=== PATIENT | male | born 1935 | race Caucasian/White ===

== ENCOUNTER 2016-05-24 13:35 | Emergency (ER) | payer MEDICARE, OTHER ==
[~2016-05-24] VITALS: Ht 160 cm; Wt 78.0 kg
[~2016-05-24 13:35] MED LIST: AMLO-218; ASPI-676; ENAL20TA73; EZET1TAB2; GLIM2TAB; HYDR25TA6; LORA-401; LORAZAPAM; NORVASC; OMEP20CA9; PIOG1TAB9; TAMS-14; VALS160T20; ZOLP10TA; [UNRECOGNIZED DRUG - OTHER]
[2016-05-24 13:46] VITALS: Ht 160 cm; Wt 78.0 kg
[2016-05-24 16:00] LABS: ADD SCAN DIFF NO
[2016-05-24 16:03] LABS: BASOPHIL # 0.1 10^3/ul (0.0-0.1); BASOPHILS % 0.9 % (0.0-2.0); EOSINOPHILS # 0.2 10^3/ul (0.0-0.5); EOSINOPHILS % 2.2 % (0.0-7.0); HEMATOCRIT 40.8 % (42.0-52.0); LYMPHOCYTES # 1.5 10^3/ul (0.8-2.9); MEAN CORPUSCULAR HEMOGLOBIN 26.1 pg (29.0-33.0); MEAN CORPUSCULAR HGB CONC 31.9 g/dl (32.0-37.0); MEAN CORPUSCULAR VOLUME 81.9 fl (82.0-101.0); MEAN PLATELET VOLUME 9.5 fl (7.4-10.4); MONOCYTE # 0.6 10^3/ul (0.3-0.9); MONOCYTES % 7.5 % (0.0-11.0); NEUTROPHIL # 5.7 10^3/ul (1.6-7.5); NEUTROPHILS % 70.4 % (39.0-77.0); PLATELET COUNT 228 10^3/UL (140-415); RED BLOOD COUNT 4.98 10^6/ul (4.70-6.10); RED CELL DISTRIBUTION WIDTH 15.2 % (11.5-14.5); WHITE BLOOD COUNT 8.1 10^3/ul (4.8-10.8)
[2016-05-24 16:16] LABS: INR 1.71; PROTIME 20.2 Sec (12.2-14.2); PT RATIO 1.6
[2016-05-24 16:17] LABS: PARTIAL THROMBOPLASTIN TIME 38.4 Sec (25.0-35.0)
--- NOTE | 2016-05-24 16:17 | RADRPT ---
PROCEDURE: XR Chest. CLINICAL INDICATION: Chest pain TECHNIQUE: Single frontal chest x-ray. COMPARISON: None available FINDINGS: Bibasilar atelectatic changes are present. There is mild central congestion. No focal no periphe ral opacification is seen. No pneumothorax or pleural effusion is seen. The the heart size is enla rged. Aortic atherosclerotic calcifications are present. The osseous structures are grossly unremar kable. IMPRESSION: 1. Cardiomegaly with mild central congestion and bibasilar atelectasis. 2. Aortic atherosclerosis. RPTAT: EE .Miguel A Chavira MD, MD Date Time Electronically viewed and signed by .Miguel A Chavira MD, MD on 05/24/2016 16:16 .A/
[2016-05-24 16:52] LABS: POTASSIUM 4.2 mmol/L (3.5-5.1)
[2016-05-24 16:55] LABS: CALCIUM 8.4 mg/dl (8.4-10.2); CREATININE 3.34 mg/dl (0.61-1.24)
[2016-05-24 16:56] LABS: MAGNESIUM 2.1 mg/dl (1.7-2.5)
[2016-05-24 17:01] VITALS: BP 169/91; PULSE 60; RESP 13; TEMP 97.9
[2016-05-24 17:07] LABS: TROPONIN-I 0.017 ng/ml (0.00-0.12)
--- NOTE | 2016-05-24 17:19 | ERD ---
ER Documentation Chief Complaint Date/Time DATE: 05/24/16 TIME: 17:16 Chief Complaint tanvi, denies cp or sob HPI This 80-year-old male presents to the emergency room for evaluation of shakiness. According to the patient patient's family the shakiness has started approximately 48 hours ago. He denies any numbness or tingling associated with this. Denies any shortness of breath or chest pain, and states that his left arm is mildly shaky. The patient denies any aggravating factors or relieving factors for his pain and came to the emergency room today for evaluation. ROS All systems reviewed and are negative except as per history of present illness. Medications Home Meds Reported Medications Lorazepam* (Ativan*) 1 Mg Tablet 12/05/09 Hydrochlorothiazide (Hydrochlorothiazide) 25 Mg Tablet 12/05/09 Zolpidem Tartrate (Ambien Gonzalo) 10 Mg Tablet 12/05/09 Glimepiride* (Glimepiride*) 2 Mg Tablet 12/05/09 Aspirin (Mario Child) 81 Mg Chew 12/05/09 Enalapril Maleate* (Vasotec*) 20 Mg Tablet 12/05/09 Amlodipine Besylate* (Norvasc*) 10 Mg Tablet 12/05/09 Omeprazole* (Prilosec*) 20 Mg Capsule.dr 12/05/09 Ezetimibe/Simvastatin (Vytorin 10/40 Mg Tablet) 1 Tab Tablet 12/05/09 Pioglitazone Hcl-Metformin Hcl (Actoplus Met) 1 Tab Tablet 12/05/09 Tamsulosin Hcl* (Flomax*) 0.4 Mg Cap.sr.24h 12/05/09 Valsartan* (Diovan*) 160 Mg Tablet 12/05/09 [Glimipiride] No Conflict Check 12/05/09 [Lorazapam] No Conflict Check 12/05/09 [Norvasc] No Conflict Check 12/05/09 Allergies Allergies: Coded Allergies: Penicillins (Verified Adverse Reaction, Severe, RASH, 12/09/09) PMhx/Soc History of Surgery: Yes (APPENDECTOMY) Anesthesia Reaction: No Hx Neurological Disorder: No Hx Respiratory Disorders: No Hx Cardiac Disorders: No Hx Psychiatric Problems: No Hx Miscellaneous Medical Probl: No Hx Alcohol Use: Yes Hx Substance Use: No Hx Tobacco Use: Yes Physical Exam Vitals Vital Signs Date Time Temp Pulse Resp B/P Pulse Ox O2 Delivery O2 Flow Rate FiO2 05/24/16 17:01 97.9 60 13 169/91 94 Room Air 05/24/16 13:46 98.1 51 20 170/83 99 Physical Exam INITIAL VITAL SIGNS: Reviewed by me GENERAL: The patient is well developed and appropriate for usual state of health in no apparent distress HEENT: Pupils equal, round, and reactive to light. EOMI. There is no scleral icterus. NECK: C-spine is soft and supple, there is no meningismus. There is no cervical lymphadenopathy. LUNGS: Clear to auscultation bilaterally. There are no rales, wheezes or rhonchi. HEART: Regular rate and rhythm, no murmurs, clicks, rubs or gallops. ABDOMEN: Soft, non-tender, non-distended. There are bowel sounds in all four quadrants. No rebound or guarding. EXTREMITIES: There is no peripheral cyanosis or edema. No focal swelling or erythema. NEUROLOGICAL: Intermittent muscle fasciculations of the left upper extremity, the patient moves all four extremities with 5/5 strength. Cranial nerves II - XII are intact. Normal gait. Alert and oriented SKIN: There is no apparent rash or petechiae. HEME/LYMPHATIC: There is no evidence of excessive bruising or lymphedema. PSYCHIATRIC: The patient does not appear anxious or depressed. Result Diagram: 05/24/16 1550 05/24/16 1550 Results 24 hrs Laboratory Tests Test 05/24/16 15:50 White Blood Count 8.110^3/ul Red Blood Count 4.9810^6/ul Hemoglobin 13.0g/dl Hematocrit 40.8% Mean Corpuscular Volume 81.9fl Mean Corpuscular Hemoglobin 26.1pg Mean Corpuscular Hemoglobin Concent 31.9g/dl Red Cell Distribution Width 15.2% Platelet Count 34676^3/UL Mean Platelet Volume 9.5fl Neutrophils % 70.4% Lymphocytes % 18.0% Monocytes % 7.5% Eosinophils % 2.2% Basophils % 0.9% Nucleated Red Blood Cells % 0.0/100WBC Neutrophils # 5.710^3/ul Lymphocytes # 1.510^3/ul Monocytes # 0.610^3/ul Eosinophils # 0.210^3/ul Basophils # 0.110^3/ul Nucleated Red Blood Cells # 0.010^3/ul Prothrombin Time 20.2Sec Prothrombin Time Ratio 1.6 INR International Normalized Ratio 1.71 Activated Partial Thromboplast Time 38.4Sec Sodium Level 142mmol/L Potassium Level 4.2mmol/L Chloride Level 109mmol/L Carbon Dioxide Level 21mmol/L Anion Gap 16 Blood Urea Nitrogen 50mg/dl Creatinine 3.34mg/dl Glucose Level 173mg/dl Calcium Level 8.4mg/dl Magnesium Level 2.1mg/dl Troponin I 0.017ng/ml Procedures/MDM EKG: Rate/Rhythm: Atrial fibrillation with slow ventricular response QRS, ST, T-waves: [No changes consistent w/ acute ischemia] Impression: [No evidence of ischemia or arrhythmia] Chest X-ray 1V Interpreted by me: Soft Tissue: No acute abnormalities Bones: No acute abnormalities Mediastinum/Cardiac Silhouette/Lungs: [No acute abnormalities] This 80-year-old male presents to the emergency room for evaluation of shakiness. When I evaluated this patient he did have periodic muscle fasciculations of the left upper extremity. EKG does show atrial fibrillation and I spoke with family and they state the patient does have a history of an irregular heart rate. Lab work was obtained to rule out hypercalcemia or hypocalcemia. This patient's lab work is within normal limits except for a creatinine which is greater than 3. His baseline is 2.4. The patient is able to urinate without difficulty. He is not hypoxic, normal respiratory distress. Troponin is negative. I advised patient he is to follow-up with his primary care physician and obtain a neurology referral. The patient and patient's family verbalized understanding and are okay with her plan of care. This patient is hemodynamically stable at this time, and advised the family to return immediately to the emergency room if this patient were to have worsening symptoms or chest pain or shortness of breath. The patient and the patient's family verbalized understanding will be discharged home at this time. Departure Diagnosis: Primary Impression: Muscle fasciculation Additional Impressions: Microcytic anemia Renal insufficiency Condition: Stable KANDIS BARRETT DO May 24, 2016 17:19
== END 2016-05-24 17:45 | disposition home or self-care (01) ==
LOC: E/R 13:35
DX: R25.3 Fasciculation (principal); R40.2252 Coma scale, best verbal response, oriented, at arrival to emergency department; D50.9 Iron deficiency anemia, unspecified; N28.9 Disorder of kidney and ureter, unspecified; R40.2142 Coma scale, eyes open, spontaneous, at arrival to emergency department; R40.2362 Coma scale, best motor response, obeys commands, at arrival to emergency department; R07.9 Chest pain, unspecified; Z87.891 Personal history of nicotine dependence; Z79.82 Long term (current) use of aspirin; Z79.84 Long term (current) use of oral hypoglycemic drugs
CPT/HCPCS: 71010; 80048; 83735; 84484; 85025; 85610; 85730; 93005

== ENCOUNTER 2016-12-12 16:42 | Emergency (ER) | payer MEDICARE, OTHER ==
[~2016-12-12] VITALS: Ht 162.6 cm; Wt 76.0 kg
[2016-12-12 16:55] VITALS: Ht 162.6 cm; Wt 76.0 kg
[2016-12-12] MEDS ORDERED: CARB1TAB2 PO (17:35)
--- NOTE | 2016-12-12 17:41 | ERD ---
ER Documentation Chief Complaint Date/Time DATE: 12/12/16 TIME: 17:39 Chief Complaint pt bib RA from home with c/o right arm twitching starting today, No pain HPI This is a 81-year-old man here with left arm twitching. The patient states he has had several months history of progressively worsening twitching in his left arm. He states that the twitching is located at the bicep. He has no pain in his head or extremities. No numbness or weakness. No visual change no slurred speech. He says that initial symptoms were very mild and brief and it progressively gotten worse stronger longer. He has not seen a physician about this. No symptoms in his left face or leg. ROS All systems reviewed and are negative except as per history of present illness. Medications Home Meds Active Scripts Carbidopa/Levodopa (Sinemet 25-100 mg Tablet) 1 Each Tablet, 1 EACH PO TID, #60 TAB Prov:BRYN MOSS DO 12/12/16 Reported Medications Lorazepam* (Ativan*) 1 Mg Tablet 12/05/09 Hydrochlorothiazide (Hydrochlorothiazide) 25 Mg Tablet 12/05/09 Zolpidem Tartrate (Ambien Gonzalo) 10 Mg Tablet 12/05/09 Glimepiride* (Glimepiride*) 2 Mg Tablet 12/05/09 Aspirin (Mario Child) 81 Mg Chew 12/05/09 Enalapril Maleate* (Vasotec*) 20 Mg Tablet 12/05/09 Amlodipine Besylate* (Norvasc*) 10 Mg Tablet 12/05/09 Omeprazole* (Prilosec*) 20 Mg Capsule. 12/05/09 Ezetimibe/Simvastatin (Vytorin 10/40 Mg Tablet) 1 Tab Tablet 12/05/09 Pioglitazone Hcl-Metformin Hcl (Actoplus Met) 1 Tab Tablet 12/05/09 Tamsulosin Hcl* (Flomax*) 0.4 Mg Cap.sr.24h 12/05/09 Valsartan* (Diovan*) 160 Mg Tablet 12/05/09 [Glimipiride] No Conflict Check 12/05/09 [Lorazapam] No Conflict Check 12/05/09 [Norvasc] No Conflict Check 12/05/09 Allergies Allergies: Coded Allergies: Penicillins (Verified Adverse Reaction, Severe, RASH, 12/09/09) PMhx/Soc History of Surgery: Yes (APPENDECTOMY) Anesthesia Reaction: No Hx Neurological Disorder: No Hx Respiratory Disorders: No Hx Cardiac Disorders: No Hx Psychiatric Problems: No Hx Miscellaneous Medical Probl: No Hx Alcohol Use: Yes Hx Substance Use: No Hx Tobacco Use: Yes Smoking Status: Current every day smoker FmHx Family History: No coronary disease Physical Exam Vitals Vital Signs Date Time Temp Pulse Resp B/P Pulse Ox O2 Delivery O2 Flow Rate FiO2 12/12/16 16:55 98.3 64 18 168/72 98 Physical Exam Const: Well-developed, well-nourished Head: Atraumatic, normocephalic Eyes: Normal Conjunctiva, PERRLA, EOMI, normal sclera, no nystagmus ENT: Normal External Ears, Nose and Mouth, moist mucus membranes. Neck: Full range of motion. No meningismus, no lymphadenopathy. Resp: Clear to auscultation bilaterally, no wheezing, rhonchi, rales Cardio: Regular rate and rhythm, no murmurs, S1 S2 present Abd: Soft, non tender x 4, non distended. Normal bowel sounds, no guarding or rebound, no pulsitile abdominal masses or bruits Skin: No petechiae or rashes, no ecchymosis , no maculopapular rash Back: No midline or flank tenderness Ext: No cyanosis, or edema, FROM x 4, normal inspection, neurovascularly intact x 4, the left arm at rest is twitching at the bicep repetitively. The patient has movement of the arm the twitching will stop. The patient does have cogwheel rigidity of the left upper extremity Neur: Awake and alert, STR 5/5 x 4, sensation intact x 4, no focal findings, cerebellum intact Psych: Normal Mood and Affect Procedures/MDM Highly suspect the patient has Parkinson's disease. Will start him on Sinemet [id number] 3 times daily and follow-up with his doctor and neurologist Departure Diagnosis: Primary Impression: Parkinson disease Additional Impression: Tremor Condition: Stable Patient Instructions: Treating Parkinson's Disease: An Overview BRYN MOSS DO Dec 12, 2016 17:41
== END 2016-12-12 18:36 | disposition home or self-care (01) ==
LOC: E/R 16:42
DX: G20 Parkinson's disease (principal); F17.210 Nicotine dependence, cigarettes, uncomplicated; Z79.82 Long term (current) use of aspirin; Z79.84 Long term (current) use of oral hypoglycemic drugs
CPT/HCPCS: 99283